=== PATIENT | male | born 1990 | race Caucasian/White ===

== ENCOUNTER 2016-05-03 07:55 | Emergency (ER) | payer MEDICAID ==
[~2016-05-03] VITALS: Ht 177.8 cm; Wt 106.5 kg
[2016-05-03 08:03] VITALS: Ht 177.8 cm; Wt 106.5 kg
[2016-05-03 08:58] LABS: BASOPHILS % 0.5 % (0.0-2.0); EOSINOPHILS # 0.3 10^3/ul (0.0-0.5); EOSINOPHILS % 4.8 % (0.0-7.0); HEMATOCRIT 43.1 % (42.0-52.0); HEMOGLOBIN 14.5 g/dl (14.0-18.0); LYMPHOCYTES # 1.4 10^3/ul (0.8-2.9); LYMPHOCYTES % 24.2 % (15.0-51.0); MEAN CORPUSCULAR HEMOGLOBIN 29.2 pg (29.0-33.0); MEAN CORPUSCULAR HGB CONC 33.5 g/dl (32.0-37.0); MEAN CORPUSCULAR VOLUME 87.2 fl (82.0-101.0); MEAN PLATELET VOLUME 8.8 fl (7.4-10.4); MONOCYTE # 0.5 10^3/ul (0.3-0.9); MONOCYTES % 8.3 % (0.0-11.0); NEUTROPHIL # 3.7 10^3/ul (1.6-7.5); NEUTROPHILS % 62.2 % (39.0-77.0); PLATELET COUNT 280 10^3/UL (140-440); RED BLOOD COUNT 4.95 10^6/ul (4.70-6.10); UNCORRECTED WBC 5.9 10^3/ul (4.8-10.8); WHITE BLOOD COUNT 5.9 10^3/ul (4.8-10.8)
[2016-05-03] MEDS ORDERED: FAMOTIDINE 20 MG TAB PO ONE (09:00)
[2016-05-03] MEDS ORDERED: LIDOCAINE/MYLANTA 40 ML BTL PO ONE (09:00)
[2016-05-03 09:02] LABS: CONDITION 1
[2016-05-03 09:07] LABS: ALBUMIN 4.2 g/dl (3.3-4.9)
[2016-05-03 09:08] LABS: POTASSIUM 4.7 mmol/L (3.5-5.1)
[2016-05-03 09:10] LABS: ALBUMIN/GLOBULIN RATIO 1.75; CREATININE 0.68 mg/dl (0.61-1.24); TOTAL PROTEIN 6.6 g/dl (6.1-8.1)
[2016-05-03 09:11] LABS: CALCIUM 9.3 mg/dl (8.4-10.2)
[2016-05-03] MEDS ORDERED: DIPHTH/TET/ACEL PERTUSS (ADULT) 0.5 ML VIAL IM* ONE (09:30)
--- NOTE | 2016-05-03 10:10 | RADRPT ---
PROCEDURE: XR Left Hand CLINICAL INDICATION: Left hand pain near fifth digit TECHNIQUE: AP, oblique, and lateral radiographs were submitted. COMPARISON: None FINDINGS: Osseous structures: appear well mineralized and intact with no fracture or destructive process iden tified. Joint spaces: are well maintained, with no significant spurring, erosion or joint effusion evident. Soft tissues: appear unremarkable. IMPRESSION: Unremarkable left hand. Physician Salvador Date Time Electronically viewed and signed by Gaurav Tilley Physician on 05/03/2016 10:09 /
[2016-05-03] MEDS ORDERED: OMEP20CA16 PO (10:46)
--- NOTE | 2016-05-03 11:11 | ERD ---
ER Documentation Chief Complaint Date/Time DATE: 05/03/16 TIME: 11:07 Chief Complaint Complains of abdominal x 3 days HPI This is a 25-year-old male with no significant past medical history presents the ED complaining of epigastric pain that is worse with food that started intermittently 2 months ago. States that there was a sudden onset and is worse at night after he eats. Dates that he does get woken up at 3 AM in the morning due to the pain. Describes as a slight burning sensation and rates it a 8 out of 10. States that he has not taking any medications. Reports that it is worse at night when he lays down. Denies any dysuria, urgency, frequency, flank pain, chest pain, shortness of breath, cough, fever, chills. Patient reports that he was carrying a heavy air conditioner and accidently lacerated his left lateral hand 7 months ago and is not experiencing numbness sensations of left hand. Denies any new injuries. Denies any fever, loss of sensation, loss of range of motion, weakness. ROS All systems reviewed and are negative except as per history of present illness. Medications Home Meds Active Scripts Omeprazole* (Omeprazole*) 20 Mg Capsule., 20 MG PO BID, #30 Prov:DARIANA FLOWERS PA-C 05/03/16 Allergies Allergies: Coded Allergies: No Known Allergy (Unverified , 05/03/16) PMhx/Soc Medical and Surgical Hx: pt denies Medical Hx, pt denies Surgical Hx History of Surgery: No Anesthesia Reaction: No Hx Neurological Disorder: No Hx Respiratory Disorders: No Hx Cardiac Disorders: No Hx Psychiatric Problems: No Hx Miscellaneous Medical Probl: No Hx Alcohol Use: Yes Hx Substance Use: Yes (marijuana) Hx Tobacco Use: Yes Smoking Status: Current some day smoker Physical Exam Vitals Vital Signs Date Time Temp Pulse Resp B/P Pulse Ox O2 Delivery O2 Flow Rate FiO2 05/03/16 08:03 98.3 65 20 129/79 100 Physical Exam Const: Ecn-qid-aqeumtpod, well-nourished. In no acute distress. Head: Atraumatic, normocephalic Eyes: Normal Conjunctiva without injection. No purulent discharge. ENT: Normal external ear, nose. Moist oropharynx without tonsillar exudates. Non -erythematous pharynx. Uvula midline. No drooling. No trismus. Neck: No cervical midline tenderness. Full range of motion. No meningismus. No cervical lymphadenopathy. No JVD. Resp: Clear to auscultation bilaterally. No wheezing, rhonchi, rales, or crackles. No accessory muscle use. No retractions. Cardio: Regular rate and rhythm. No murmurs, rubs or gallops. Abd: Soft, epigastric tenderness, non distended. Normal bowel sounds. No palpable masses. No rebound tenderness. No guarding. Negative McBurney's point. Negative psoas sign. Negative obturator sign. : See exam in MDM. Skin: No petechiae or rashes Back: No midline tenderness. No CVA tenderness. Ext: No cyanosis, or edema. Neur: Awake and alert. Normal gait. Normal coordination. Psych: Normal Mood and Affect Result Diagram: 05/03/1645 05/03/16 0845 Results 24 hrs Laboratory Tests Test 05/03/16 08:45 Alanine Aminotransferase (ALT/SGPT) 25IU/L Albumin 4.2g/dl Albumin/Globulin Ratio 1.75 Alkaline Phosphatase 71IU/L Anion Gap 16 Aspartate Amino Transf (AST/SGOT) 20IU/L Basophils # 0.010^3/ul Basophils % 0.5% Blood Urea Nitrogen 10mg/dl Calcium Level 9.3mg/dl Carbon Dioxide Level 26mmol/L Chloride Level 104mmol/L Creatinine 0.68mg/dl Direct Bilirubin 0.00mg/dl Eosinophils # 0.310^3/ul Eosinophils % 4.8% Globulin 2.40g/dl Glucose Level 99mg/dl Hematocrit 43.1% Hemoglobin 14.5g/dl Indirect Bilirubin 0.0mg/dl Lipase 104U/L Lymphocytes # 1.410^3/ul Lymphocytes % 24.2% Mean Corpuscular Hemoglobin 29.2pg Mean Corpuscular Hemoglobin Concent 33.5g/dl Mean Corpuscular Volume 87.2fl Mean Platelet Volume 8.8fl Monocytes # 0.510^3/ul Monocytes % 8.3% Neutrophils # 3.710^3/ul Neutrophils % 62.2% Nucleated Red Blood Cells # 0.010^3/ul Nucleated Red Blood Cells % 0.0/100WBC Platelet Count 08320^3/UL Potassium Level 4.7mmol/L Red Blood Count 4.9510^6/ul Red Cell Distribution Width 14.0% Sodium Level 141mmol/L Total Bilirubin 0.0mg/dl Total Protein 6.6g/dl White Blood Count 5.910^3/ul Current Medications Medications (Trade) Dose Ordered Sig/Thai Route PRN Reason Start Time Stop Time Status Last Admin Dose Admin Miscellaneous Medication (Gi Cocktail (2)) 40 ml ONCE ONCE PO 05/03/16 09:00 2 09:15 DC 05/03/16 08:39 Famotidine (Pepcid) 20 mg ONCE ONCE PO 05/03/16 09:00 05/03/16 09:15 DC 05/03/16 08:39 Diphtheria/ Tetanus/Acell Pertussis (Adacel) 0.5 ml ONCE ONCE IM* 05/03/16 09:30 2 09:31 DC 05/03/16 09:38 Procedures/MDM This is a 25-year-old male with no significant past medical history presents to the ED with a sudden intermittent onset of epigastric pain that occurred 2 months ago. Patient is afebrile nontoxic appearing. Patient has normal vital signs. This time a CBC, CMP, lipase was ordered to further evaluate patient. Patient was treated with a GI cocktail, famotidine with improvement of his pain. Patient also reports that he has some left hand numbness and tingling due to a previous laceration, he is worried about any recent dislocations. A left hand x-ray was ordered to further evaluate patient. CBC: No leukocytosis. No e/o of systemic infection. No e/o anemia. CMP: No e/o severe acidosis, alkalosis, renal failure, diabetic ketoacidosis, liver disease Lipase within normal limits. PROCEDURE: XR Left Hand CLINICAL INDICATION: Left hand pain near fifth digit TECHNIQUE: AP, oblique, and lateral radiographs were submitted. COMPARISON: None FINDINGS: Osseous structures: appear well mineralized and intact with no fracture or destructive process identified. Joint spaces: are well maintained, with no significant spurring, erosion or joint effusion evident. Soft tissues: appear unremarkable. IMPRESSION: Unremarkable left hand. Patient has GERD since his pain is exacerbated with food as well as laying down. A differential diagnosis considered includes but is not limited to gastritis, GERD, peptic ulcer disease, cholecystitis, choledocholithiasis, cholangitis, pancreatitis, appendicitis, bowel obstruction, ileus, volvulus, nephrolithiasis, pyelonephritis, hepatitis, perforated viscus, diverticulitis, abdominal hernia, acute abdomen, mesenteric ischemia or other emergent conditions. Patient could likely have possible left hand nerve pain after a deep laceration he sustained 7 months ago after his work injury. Patient's extremity symptoms have stabilized while they have been evaluated in the department and are appropriate for outpatient follow up. No evidence of fractures, dislocations, compartment syndrome, neurologic injury, vascular injury, open joint, open fracture, tendon laceration, septic arthritis, osteomyelitis, DVT, foreign body, or other emergent conditions. Discharge medications: Omeprazole Follow up with primary care physician in 1-2 days for referral to leadership development manager. Instructed patient to return to the ED sooner for any worsening symptoms. Patient's questions were answered. Patient understood and agreed with discharge plan. Patient discharged stable. Departure Diagnosis: Primary Impression: Epigastric pain Condition: Stable Patient Instructions: Gerd (Adult), Epigastric Pain (Uncertain Cause) Referrals: [facility] YOU HAVE RECEIVED A MEDICAL SCREENING EXAM AND THE RESULTS INDICATE THAT YOU DO NOT HAVE A CONDITION THAT REQUIRES URGENT TREATMENT IN THE EMERGENCY DEPARTMENT. FURTHER EVALUATION AND TREATMENT OF YOUR CONDITION CAN WAIT UNTIL YOU ARE SEEN IN YOUR DOCTORS OFFICE WITHIN THE NEXT 1-2 DAYS. IT IS YOUR RESPONSIBILITY TO MAKE AN APPOINTMENT FOR FOLOW-UP CARE. IF YOU HAVE A PRIMARY DOCTOR --you should call your primary doctor and schedule an appointment IF YOU DO NOT HAVE A PRIMARY DOCTOR YOU CAN CALL OUR PHYSICIAN REFERRAL HOTLINE AT IF YOU CAN NOT AFFORD TO SEE A PHYSICIAN YOU CAN CHOSE FROM THE FOLLOWING [facility] [address] [facility] [facility] [address] [facility] [facility] [address] [facility]. [facility] [address] [facility]. [facility] [address] [facility]. [facility] [address] [facility]. [facility] YOU HAVE RECEIVED A MEDICAL SCREENING EXAM AND THE RESULTS INDICATE THAT YOU DO NOT HAVE A CONDITION THAT REQUIRES URGENT TREATMENT IN THE EMERGENCY DEPARTMENT. FURTHER EVALUATION AND TREATMENT OF YOUR CONDITION CAN WAIT UNTIL YOU ARE SEEN IN YOUR DOCTORS OFFICE WITHIN THE NEXT 1-2 DAYS. IT IS YOUR RESPONSIBILITY TO MAKE AN APPOINTMENT FOR FOLOW-UP CARE. IF YOU HAVE A PRIMARY DOCTOR --you should call your primary doctor and schedule and appointment IF YOU DO NOT HAVE A PRIMARY DOCTOR YOU CAN CALL OUR PHYSICIAN REFERRAL HOTLINE AT . IF YOU CAN NOT AFFORD TO SEE A PHYSICIAN YOU CAN CHOSE FROM THE FOLLOWING [facility] INSTITUTIONS: [facility] [address] [place] [address] [facility] [address] [place] [address] [facility] + [facility] [address] [place] [address] [facility] URGENT C[facility]/SPECIALTIES Additional Instructions: FOLLOW UP WITH YOUR PRIMARY CARE PHYSICIAN TOMORROW. Return to this facility if you are not improving as expected. DARIANA FLOWERS PA-C May 03, 2016 11:11
== END 2016-05-03 11:04 | disposition home or self-care (01) ==
LOC: FTE 07:55
DX: R10.13 Epigastric pain (principal); F17.210 Nicotine dependence, cigarettes, uncomplicated; S61.412D Laceration without foreign body of left hand, subsequent encounter; X58.XXXD Exposure to other specified factors, subsequent encounter; Z23 Encounter for immunization
CPT/HCPCS: 73130; 80053; 83690; 85025; Z7610; 36415; 90471